=== PATIENT | male | born 1960 | race Caucasian/White ===

== ENCOUNTER 2017-01-22 05:11 | Inpatient (IN) | payer MEDICARE, OTHER ==
--- NOTE | ~2017-01-22 | DS ---
Unit #: [id number] #: [id number] Patient: MEET OTOOLE [id number] [facility] [address] [place] [address] [id number] MR#: [id number] NAME: MEET OTOOLE. ROOM: P116 Age: 56 Sex: M Admission Date: 01/22/2017 : 1960 Discharge Date: 01/25/2017 Attending Physician: Reece Simms M.D. Primary Care Physician: Primary Care Physician No DISCHARGE SUMMARY REASON FOR ADMISSION Suicidal ideation. DIAGNOSTIC STUDIES LABORATORY DATA: Unremarkable. HOSPITAL COURSE The patient was admitted to inpatient unit on January 22 and discharged on 01/25/2017. The patient was treated on the inpatient unit with group therapy, individual therapy, and medication management. The patient responded well with the above modalities of treatment and requested for discharge. The patient denied any suicidal or homicidal ideation, but still somewhat guarded and paranoid. No side effects from medication. Subsequently, the patient was discharged with plan to follow up in outpatient program. DISCHARGE MEDICATIONS 1. Zyprexa 10 mg at bedtime for mood stabilization. 2. Trazodone 150 mg at bedtime for sleep. DISCHARGE DIAGNOSES PSYCHIATRIC: Psychosis not otherwise specified, F29.0. Rule out schizophrenia, chronic, paranoid type. SECONDARY: Deferred. MEDICAL: Chronic back pain, back injury. STRESSORS: Psychosocial stressor. Homelessness. FOLLOWUP CARE The patient to follow up in outpatient clinic as per secondary social studies teacher. CONDITION ON DISCHARGE The patient pleasant, cooperative. Denied any psychotic symptom or any suicidal ideation, (1) __, paranoid. PROGNOSIS Guarded. DIET AND ACTIVITY As tolerated. Dictated by... Unit #: [id number] #: [id number] Patient: MEET OTOOLE Rasheed Kim/pankajg TD: 01/31/2017 14:09 JOB #: [id number] DISCHARGE SUMMARY Page 1 of 1 X Reece Simms MD X DISCHARGE SUMMARY
--- NOTE | ~2017-01-22 | PN ---
Unit #: [id number] #: [id number] Patient: MEET OTOOLE [id number] [facility] [address] [place] [address] [id number] MR#: [id number] NAME: MEET OTOOLE. ROOM: P116 Age: 56 Sex: M Admission Date: 01/22/2017 : 1960 Attending Physician: Reece Simms M.D. Admitting Physician: Reece Simms M.D. Primary Care Physician: Primary Care Physician Daphney WORTHINGTON PROGRESS NOTES DATE 01/24/2017 DISCUSSION Mr. Castillo is a 56-year-old male, seen on 01/24/2017. The patient interviewed, chart reviewed, and obtained information from the nursing staff. The patient reports that he is feeling better, decrease in voices, paranoia, compliant and cooperative, able to maintain safe behavior. REVIEW OF SYSTEMS Complete review of systems unremarkable. MENTAL STATUS EXAMINATION General appearance: Patient dressed casually. Attention span and concentration, fair. Oriented to place and person. Mood and affect, labile. Speech, rapid. Thought process, circumstantial. The patient denied any thoughts of harming self or others but guarded. Recent and remote memory, poor. Insight and judgment, poor. DIAGNOSIS Bipolar mood disorder, NOS. ASSESSMENT/PLAN Advised to continue with the current medication with the plan to consider discharge this week and follow up in outpatient program. Dictated by... Rasheed Kim/soheila TD: 01/25/2017 13:25 JOB #: [id number] Unit #: [id number] #: [id number] Patient: MEET OTOOLE [facility] PROGRESS NOTES Page 1 of 1 X Reece Simms MD PROGRESS NOTE
--- NOTE | ~2017-01-22 | PN ---
Unit #: [id number] #: [id number] Patient: JONATHAN OTOOLE [id number] [facility] [address] [place] [address] [id number] MR#: [id number] NAME: JONATHAN OTOOLE. ROOM: P116 Age: 56 Sex: M Admission Date: 01/22/2017 : 1960 Attending Physician: Reece Simms M.D. Admitting Physician: Reece Simms M.D. Primary Care Physician: Daphney Primary Care Physician [facility] PROGRESS NOTES DATE OF SERVICE 01/23/2017 DISCUSSION Jonathan is a 56-year-old male seen on 01/23/2017. Patient interviewed, chart reviewed, and obtained information from nursing staff. Patient was still refusing medication in the morning, but reported to (1) that he is taking medication. Patient isolative, guarded. Flat affect. Staying in his room. Mood depression, sad, dysphoric. REVIEW OF SYSTEMS Complete review of systems unremarkable. MENTAL STATUS EXAMINATION GENERAL APPEARANCE: Patient dressed casually. ATTENTION SPAN AND CONCENTRATION: Poor. ORIENTATION: Oriented in place and person. MOOD AND AFFECT: Sad, dysphoric. SPEECH: Monotone. THOUGHT PROCESS: Firth. Patient denied any thoughts of harming self, but having passive SI and hallucinations. Isolative, guarded, delusional. RECENT AND REMOTE MEMORY: Poor. INSIGHT AND JUDGEMENT: Poor. DIAGNOSES 1. Psychosis, NOS. 2. Mood disorder, NOS. ASSESSMENT/PLAN Advised to continue with current medication and therapeutic protocol. If needed, consider further adjustment of medication Dictated by... Rasheed Kim/johann TD: 01/24/2017 12:53 JOB #: [id number] Unit #: [id number] #: [id number] Patient: JONATHAN OTOOLE [facility] PROGRESS NOTES Page 1 of 1 X Reece Simms MD PROGRESS NOTE
--- NOTE | ~2017-01-22 | HP ---
Unit #: [id number] #: [id number] Patient: JONATHAN OTOOLE [id number] [place] [address] [id number] MR#: [id number] NAME: JONATHAN OTOOLE. ROOM: P116 Age: 56 Sex: M Admission Date: 01/22/2017 : 1960 Attending Physician: Reece Simms M.D. Admitting Physician: Reece Simms M.D. Primary Care Physician: Primary Care Physician No HISTORY AND PHYSICAL HISTORY OF PRESENT ILLNESS Jonathan is a 56 year old admitted to [address] [place] [address] after reporting auditory hallucinations and verbalizing wanting to hurt himself. PAST MEDICAL HISTORY 1. Morbid obesity 2. Degenerative disc disease PAST SURGICAL HISTORY 1. Cholecystectomy 2. Inguinal hernia repair 1. Penicillin SOCIAL HISTORY Smokes one-half pack per day. Drinks alcohol on occasion and admits to using marijuana on occasion. FAMILY HISTORY Medically noncontributory. REVIEW OF SYSTEMS CONSTITUTIONAL: No fever or chills. HEENT: Denies any sore throat, ear pain or runny nose. CARDIOVASCULAR: Denies chest pain, irregular heart rhythm or palpitations. CHEST: Denies shortness of breath or cough. No hemoptysis. GASTROINTESTINAL: Denies nausea, vomiting, diarrhea or chronic constipation. ENDOCRINE: Denies history of increased thirst or urination. No recent significant weight loss or gain. GENITOURINARY: Denies dysuria, frequency, or hematuria. SKIN: Denies any rashes. HEMATOLOGIC: Denies history of increased bleeding or bruising. MUSCULOSKELETAL: Denies any hot, swollen joints. No generalized muscle pain. NEUROLOGIC: Denies problems with vision or speech. No frequent, severe headaches. No numbness, tingling or weakness in any extremities. Denies loss of bladder or bowel control. CURRENT MEDICATIONS 1. Trazodone 150 mg q.h.s. Unit #: [id number] #: [id number] Patient: JONATHAN OTOOLE 2. Zyprexa 10 mg b.i.d. 3. Ibuprofen 800 mg q.6 h. p.r.n. 4. Milk of Magnesia p.r.n. 5. Maalox p.r.n. 6. Tylenol p.r.n. PHYSICAL EXAMINATION GENERAL: Alert, morbidly obese, in no apparent distress. VITAL SIGNS: Blood pressure 154/64, heart rate 82, respirations 16, temperature 98.6. WEIGHT: 270 pounds. HEIGHT: 6'0". SKIN: Warm and dry without rash or lesion. HEENT: Normocephalic. TMs not viewed. Oral and nasal passages clear. Conjunctivae clear. Pupils equal, round and reactive to light and accommodation. Extraocular movements intact. NECK: Supple without lymphadenopathy or thyromegaly. HEART: Regular rate and rhythm without murmur. LUNGS: Clear. ABDOMEN: Soft, nontender. : Not done. EXTREMITIES: No evidence of cyanosis, clubbing or edema. Moves all extremities without focal deficit. NEUROLOGICAL: Grossly within normal limits. Cranial Nerves: II: Visual mckeon are intact. III, IV AND : Extraocular movements are intact. Pupils are equal, round and reactive to light. V: Facial sensation is grossly normal. VII: Facial movements and expression are normal. VIII: Auditory acuity grossly intact. IX, X: Uvula is midline. Phonation is normal. XI: Patient shrugs shoulders and turns head normally. XII: Tongue protrudes in the midline. Sensory and Motor Function: Sensory and motor sensation is grossly normal. Motor: moves all extremities well. Coordination: Gait is normal. Deep Tendon Reflexes: Intact. IMPRESSION Psychiatric admission RECOMMENDATIONS PSYCHIATRIC: Per psychiatrist. MEDICAL: I see no contraindications to participating in facility's activities. MEDICAL PROGNOSIS Good. MEDICAL CONDITION Stable. Dictated by... Rakel Ellis P.A.-C. for Jass White M.D. Unit #: [id number] #: [id number] Patient: JONATHAN OTOOLE DILLAN/hiram TD: 01/22/2017 21:34 JOB #: [id number] HISTORY AND PHYSICAL Page 1 of 1 X Rakel Ellis HISTORY AND PHYSICAL
--- NOTE | ~2017-01-22 | PA ---
Unit #: [id number] #: [id number] Patient: JONATHAN JONES [id number] [place] [address] [id number] MR#: [id number] NAME: JONATHAN JONES. ROOM: 16 Age: 56 Sex: M Admission Date: 01/22/2017 : 1960 Date of Assessment: Attending Physician: Reece Simms M.D. Admitting Physician: Reece Simms M.D. PSYCHIATRIC ASSESSMENT INFORMANT The patient's reliability, poor; chart reliability, good. CHIEF COMPLAINT Suicidal ideation. HISTORY OF PRESENT ILLNESS Jonathan Jones is a 56-year-old male, seen on . The patient reported hearing voices. The patient reports that he is from [place] and on his way. The patient is currently homeless and living in a prison. The patient reported that he started hearing voices and called 911. The patient reported command hallucination. The patient was pleasant and cooperative during interview. The patient reported that the voices were telling him to jump off the bridge. The patient was sleeping under the bridge. The patient reported that raised after the emergency response. The patient currently denied any homicidal ideation, but reported having problem with the hallucination and suicidal ideation. The patient denied any use of drugs or alcohol, but according to the reports, occasional use of marijuana and alcohol. The patient is needing inpatient admission at this time for psychiatric stabilization. PAST PSYCHIATRIC HISTORY Remarkable for history of inpatient treatment in the past, details unknown at this time. History of treatment through [place]. FAMILY HISTORY/SOCIAL HISTORY Unavailable. The patient denied any history of any abuse. MEDICAL HISTORY Unremarkable for any history of any psychiatric illness except for back pain and back injury. MEDICATION HISTORY Trazodone 150 mg at bedtime. ALLERGIES No known drug allergies. SUBSTANCE ABUSE HISTORY The patient reported tobacco use, age of onset 11; alcohol, age of onset 11; marijuana, age of onset 15. REVIEW OF SYSTEMS Unit #: [id number] #: [id number] Patient: JONATHAN JONES HEENT: Eyes clear. Ears, nose, mouth, throat clear. CARDIOVASCULAR: Unremarkable. RESPIRATORY: Unremarkable. GI: Unremarkable. : Unremarkable. SKIN: Unremarkable. LYMPH NODE: Unremarkable. NEUROLOGIC: Unremarkable. ENDOCRINE: Unremarkable. HEMATOLOGIC: Unremarkable. ALLERGIC/IMMUNOLOGIC: Unremarkable. MUSCULOSKELETAL: Muscle strength and tone, no atrophy or abnormal movement. Gait normal. MENTAL STATUS EXAMINATION CONSTITUTIONAL: Measurement of vital signs; temperature 98.9, pulse 82, respirations 20, blood pressure 155/65. Height 6 feet and weight 270 pounds. GENERAL APPEARANCE: The patient dressed casually. The patient did not show any facial deformity. MUSCULOSKELETAL: Please see above. PSYCHIATRIC EXAMINATION Description of speech; regular rate, normal volume, normal articulation, coherent. Description of thought process, circumstantial. Description of association, guarded and paranoid. Description of abnormal psychotic thinking; the patient reported hallucinations, hearing things, command hallucination, suicidal ideation, substance abuse. No homicidal ideation. Description of the patient's judgment, concerning. Everyday activity, poor. Social situation, poor and concerning. Psychiatric condition, poor. Complete mental status examination; oriented in time, place, and person. Recent and remote memory, fair. Attention span and concentration, fair. Language, able to name object and repeat phrases. Fund of knowledge, aware of current event and passive vocabulary intact. Mood and affect, sad and dysphoric. Insight and judgment, fair to poor. ASSETS AND LIABILITIES Assets, the patient is articulate and able to take care of his ADL. Liability, history of depression, psychosis, substance abuse. ADMITTING DIAGNOSES Psychiatric: 1. Psychosis, not otherwise specified. 2. Rule out schizophrenia, chronic paranoid type. Secondary diagnoses: Chronic back pain, back injury. Stressors: Psychosocial stressor, homelessness. PSYCHIATRIC PLAN AND TREATMENT GOAL 1. Advised to admit the patient on the inpatient unit. Provide safe, supportive, and structured environment. 2. Ordered labs; CBC, CMP, UA, and UDS. 3. Precaution for aggression, self-harm, and special observation for psychosis. 4. The patient is to start with Zyprexa 10 mg b.i.d. Continue with trazodone. 5. Treatment goal is to attain euthymic mood, gain insight into his Unit #: [id number] #: [id number] Patient: JONATHAN JONES [place] problem, learn coping skills. 6. Discharge plan; plan is to stabilize the patient and consider followup in outpatient program. ESTIMATED LENGTH OF STAY 5 days. Dictated by... Rasheed KimC/dale TD: 01/23/2017 03:45 JOB #: [id number] PSYCHIATRIC ASSESSMENT Page 1 of 1 X Reece Simms MD PSYCHIATRIC ASSESSMENT
== END 2017-01-25 15:54 | disposition home or self-care (01) | DRG 885 ==
LOC: P1S 05:11
DX: F29 Unspecified psychosis not due to a substance or known physiological condition (principal); R45.851 Suicidal ideations; E66.01 Morbid (severe) obesity due to excess calories; F20.0 Paranoid schizophrenia; G89.29 Other chronic pain; G54.9 Nerve root and plexus disorder, unspecified; Z59.0 Homelessness; M19.90 Unspecified osteoarthritis, unspecified site; Z90.49 Acquired absence of other specified parts of digestive tract; F17.210 Nicotine dependence, cigarettes, uncomplicated; F12.90 Cannabis use, unspecified, uncomplicated; F39 Unspecified mood [affective] disorder; F31.9 Bipolar disorder, unspecified; Z68.36 Body mass index [BMI] 36.0-36.9, adult